=== PATIENT | female | born 1985 | race African-American/Black ===

== ENCOUNTER 2019-06-15 21:52 | Emergency (ER) | payer OTHER ==
[~2019-06-15] VITALS: Ht 170.2 cm; Wt 73.9 kg
[2019-06-15 21:56] VITALS: Ht 170.2 cm; Wt 73.9 kg
[2019-06-16 01:17] LABS: BASOPHIL % 0.4 % (0-2); PLATELET COUNT 435 x10^3mcL (130-400); RED CELL DISTRIBUTION WIDTH 15.7 % (11.5-14.5)
[2019-06-16 01:22] LABS: CALCIUM 9.1 mg/dL (8.5-10.1); CARBON DIOXIDE 28.9 mmol/L (21-32); CHLORIDE SERUM 103 mmol/L (98-107); CREATININE SERUM 0.7 mg/dL (0.6-1.0); GFR1 > 60 mL/min; GLUCOSE SERUM 96 mg/dL (74-106); POTASSIUM SERUM 4.2 mmol/L (3.5-5.1); SODIUM SERUM 140 mmol/L (136-145)
[2019-06-16 01:27] LABS: ALKALINE PHOSPHATASE 92 U/L (46-116); ALT/SGPT 23 U/L (14-59); AST/SGOT 21 U/L (15-37); BILIRUBIN TOTAL 0.16 mg/dL (0.20-1.00); TOTAL PROTEIN, SERUM 7.7 g/dL (6.4-8.2)
[2019-06-16 01:47] LABS: ALBUMIN 3.2 g/dL (3.4-5.0)
[2019-06-16 01:52] VITALS: BP 111/69
== END 2019-06-16 01:52 | disposition home or self-care (01) ==
LOC: ED 21:52
PROVIDERS: Emergency Medicine
DX: I82.412 Acute embolism and thrombosis of left femoral vein (principal)
CPT/HCPCS: 36415; Q0092